=== PATIENT | female | born 1955 | race Caucasian/White ===

== ENCOUNTER 2018-08-06 14:30 | Emergency (ER) | payer MEDICARE, OTHER ==
[2018-08-06 14:59] LABS: ADD MAN DIFF? NO
[2018-08-06] MEDS: SOD CHLORIDE 0.9% 1,000 ML IV (15:00)
[2018-08-06 15:05] LABS: BASOPHILS % 0.3 % (0.0-2.0); EOSINOPHILS # 0.1 10^3/ul (0.0-0.5); EOSINOPHILS % 1.9 % (0.0-7.0); HEMATOCRIT 29.3 % (37.0-47.0); HEMOGLOBIN 9.4 g/dl (12.0-16.0); LYMPHOCYTES # 1.4 10^3/ul (0.8-2.9); LYMPHOCYTES % 20.2 % (15.0-51.0); MEAN CORPUSCULAR HEMOGLOBIN 27.2 pg (29.0-33.0); MEAN CORPUSCULAR HGB CONC 32.1 g/dl (32.0-37.0); MEAN CORPUSCULAR VOLUME 84.9 fl (82.0-101.0); MEAN PLATELET VOLUME 10.6 fl (7.4-10.4); MONOCYTE # 0.6 10^3/ul (0.3-0.9); MONOCYTES % 8.6 % (0.0-11.0); NEUTROPHIL # 4.8 10^3/ul (1.6-7.5); NEUTROPHILS % 68.7 % (39.0-77.0); PLATELET COUNT 214 10^3/UL (140-415); RED BLOOD COUNT 3.45 10^6/ul (4.20-5.40); RED CELL DISTRIBUTION WIDTH 15.2 % (11.5-14.5)
[2018-08-06 15:36] LABS: ANION GAP 8 (5-13); BLOOD UREA NITROGEN 25 mg/dl (7-20); CALCIUM 9.8 mg/dl (8.4-10.2); CARBON DIOXIDE 25 mmol/L (21-31); CHLORIDE 109 mmol/L (97-110); CREATININE 1.25 mg/dl (0.44-1.00); Estimated GFR 44 mL/min (>60); GLUCOSE 88 mg/dl (70-220); POTASSIUM 3.3 mmol/L (3.5-5.1); SODIUM 142 mmol/L (135-144)
[2018-08-06 15:47] LABS: TROPONIN-I 0.034 ng/ml (0.000-0.120)
[2018-08-06] MEDS ORDERED: POTASSIUM CHLORIDE 20 MEQ POWDER FOR ORAL SOLN (16:28)
[2018-08-06] MEDS: POTASSIUM CHLORIDE (SR) 20 MEQ TAB PO (16:31)
[2018-08-06] MEDS: POTASSIUM CHLORIDE 20 MEQ POWDER FOR ORAL SOLN PO (16:31)
== END 2018-08-06 17:00 | disposition home or self-care (01) ==
LOC: E/R 14:30
DX: R55 Syncope and collapse (principal); E87.6 Hypokalemia; G20 Parkinson's disease
CPT/HCPCS: 36415; 80048; 82962; 84484; 85025; 99284-25